=== PATIENT | female | born 1980 | race Caucasian/White ===

== ENCOUNTER 2021-11-24 23:06 | Inpatient (IN) | payer MEDICAID ==
[~2021-11-24] VITALS: Ht 162.6 cm; Wt 52.7 kg
[2021-11-24 23:41] LABS: BASOPHILS # (AUTO) 0.1 X10'3 (0-0.2); BASOPHILS % (AUTO) 1.1 % (0-1); EOSINOPHILS # (AUTO) 0.2 X10'3 (0-0.9); EOSINOPHILS % (AUTO) 2.7 % (0-6); HEMATOCRIT 36.9 % (35.0-45.0); HEMOGLOBIN 12.2 g/dl (12.0-16.0); LYMPHOCYTES # (AUTO) 2.9 X10'3 (1.1-4.8); LYMPHOCYTES % (AUTO) 35.7 % (21-51); MEAN CORPUSCULAR HEMOGLOBIN 27.3 PG (27.0-31.0); MEAN CORPUSCULAR HGB CONC 33.1 g/dL (33.0-36.5); MEAN CORPUSCULAR VOLUME 82.6 FL (78-98); MEAN PLATELET VOLUME 8.5 FL (7.4-10.4); MONOCYTES # (AUTO) 0.5 X10'3 (0-0.9); NEUTROPHILS # (AUTO) 4.5 X10'3 (1.8-7.7); NEUTROPHILS % (AUTO) 54.5 % (42-75); PLATELET COUNT 227 X10'3 (140-440); RED BLOOD COUNT 4.47 X10'6 (4.20-5.60); RED CELL DISTRIBUTION WIDTH 13.9 % (11.5-14.5); WHITE BLOOD COUNT 8.2 X10'3 (4.5-11.0)
--- NOTE | 2021-11-24 23:49 | NUR ---
UPON TRIAGING PT FOUND LEFT SIDED DEFICITS IN STRENGTH AND SENSATION. ADVISED DR MCKENZIE WHO CAME TO TRIAGE TO EVALUATE PT AND STATES HE THINKS SHE MAY HAVE HAD A STROKE ON TUESDAY WHEN SYMPTOMS BEGAN AND IS GOING TO ORDER A HEAD CT
[2021-11-24] MEDS ORDERED: iohexol 350MG/ML 100ml bottle IV ONE (23:52)
[2021-11-24 23:54] LABS: ALANINE AMINOTRANSFERASE 23 U/L (12-78); ALBUMIN 4.1 G/DL (3.4-5.0); ALBUMIN/GLOBULIN RATIO 1.1 (1.1-1.5); ALKALINE PHOSPHATASE 92 IU/L (46-116); ANION GAP 13 (8-16); ASPARTATE AMINO TRANSFERASE 20 U/L (10-37); BILIRUBIN,TOTAL 1.6 MG/DL (0.1-1.0); BLOOD UREA NITROGEN 8 MG/DL (7-18); BUN/CREATININE RATIO 14.3 (6.6-38.0); CHLORIDE 104 MMOL/L (99-107); CREATININE 0.56 MG/DL (0.40-0.90); GLUCOSE 99 MG/DL (70-104); POTASSIUM 3.3 MMOL/L (3.5-5.1); SODIUM 139 MMOL/L (135-145); TOTAL CARBON DIOXIDE 22.2 MMOL/L (24-32); eGFR > 90 ML/MIN
--- NOTE | 2021-11-25 00:03 | NUR ---
PT ROOMED IN BED 15. ASSUMED CARE OF PT. CT ORDERED.
[2021-11-25 00:13] LABS: APTT 30 SECONDS (22-32)
[2021-11-25] MEDS ORDERED: aspirin 325mg tablet PO ONE (01:05)
[2021-11-25] MEDS ORDERED: magnesium hydroxide 30ml (MOM) UD suspension PO PRN (03:15)
[2021-11-25] MEDS ORDERED: ondansetron/PF 4mg/2ml inj IV PRN (03:15)
[2021-11-25] MEDS ORDERED: acetaminophen 325mg tablet PO PRN ×2 (03:15)
[2021-11-25] MEDS ORDERED: HYDROcodone/acetaminophen 5mg/325mg tablet PO PRN (03:15)
[2021-11-25] MEDS ORDERED: morphine 2 MG/ML inj. syringe IV PRN ×2 (03:15)
[2021-11-25] MEDS ORDERED: mag hydrox/Alum hydrox/simeth 30ml oral suspension PO PRN (03:15)
[2021-11-25 03:45] LABS: HEMOGLOBIN A1C 5.5 % (4.5-6.2)
[2021-11-25 03:51] LABS: CHOL/HDL RATIO 2.3 (0.00-4.99); CHOLESTEROL 197 MG/DL (0-200); HDL CHOLESTEROL 85 MG/DL (35-60); LDL CHOLESTEROL 103 MG/DL (50-100); TRIGLYCERIDES 71 MG/DL (20-135)
[2021-11-25] MEDS ORDERED: NO HOME MEDS (04:18)
[2021-11-25] MEDS: dextrose 5%-1/2 normal saline 1,000 ML IV SCH ×3 (05:18→16:08)
[2021-11-25] MEDS: enoxaparin 40mg/0.4ml syringe SUBCUT SCH (07:57)
[2021-11-25] MEDS: docusate sod 100mg capsule PO SCH ×2 (07:57→19:55)
[2021-11-25] MEDS: aspirin 81mg, enteric-coated 1 TAB TABLET.DR PO SCH (07:58)
[2021-11-25] MEDS: atorvastatin 20mg tablet PO SCH (07:58)
[2021-11-25] MEDS ORDERED: potassium CL 10mEq/100ml bag 100 ML IV PRN (08:45)
[2021-11-25] MEDS ORDERED: potassium Cl 20 mEq SR tablet PO PRN (08:45)
[2021-11-25] MEDS ORDERED: magnesium Cl slow-release 64mg tablet PO PRN (08:45)
[2021-11-25] MEDS ORDERED: magnesium 4gm in 100ml NS 100 ML IV PRN (08:45)
[2021-11-25] MEDS: potassium Cl 20 mEq SR tablet PO PRN ×2 (10:52→19:55)
--- NOTE | 2021-11-25 11:38 | NUR ---
significant other at bedside.
--- NOTE | 2021-11-25 15:36 | NUR ---
received report, assumed care. Pt A&O x4, VS stable
[2021-11-25 15:49] VITALS: BP 103/73
--- NOTE | 2021-11-25 16:38 | NUR ---
Message: RE new admit October Emekaliz RM 3100S, asking if you will be around to discuss CT/MRI results Thank you, Phillip ANDERSON
[2021-11-25] MEDS ORDERED: GADOTERATE MEGLUMINE 10 MMOL/20 ML SYRINGE IV ONE (18:13)
--- NOTE | 2021-11-25 18:29 | NUR ---
Problems reprioritized. Patient report given, questions answered & plan of care reviewed with BROOKS ANDERSON.
--- NOTE | 2021-11-25 18:30 | NUR ---
Patient in room ORTHO 4011. I have received report from MONICA Hightower and had the opportunity to ask questions and assume patient care.
[2021-11-25] MEDS: K and/or MAG REPLACEMENT MC SCH (20:00)
[2021-11-25 22:52] VITALS: BP 91/61
[2021-11-26] MEDS: dextrose 5%-1/2 normal saline 1,000 ML IV SCH (04:17)
[2021-11-26 06:00] VITALS: BP 83/48
--- NOTE | 2021-11-26 06:21 | NUR ---
Problems reprioritized. Patient report given, questions answered & plan of care reviewed with MONICA Fisher.
[2021-11-26 06:50] LABS: BASOPHILS # (AUTO) 0.1 X10'3 (0-0.2); BASOPHILS % (AUTO) 0.9 % (0-1); EOSINOPHILS # (AUTO) 0.3 X10'3 (0-0.9); EOSINOPHILS % (AUTO) 5.9 % (0-6); HEMATOCRIT 32.1 % (35.0-45.0); HEMOGLOBIN 10.8 g/dl (12.0-16.0); LYMPHOCYTES # (AUTO) 1.9 X10'3 (1.1-4.8); LYMPHOCYTES % (AUTO) 32.1 % (21-51); MEAN CORPUSCULAR HEMOGLOBIN 27.8 PG (27.0-31.0); MEAN CORPUSCULAR HGB CONC 33.7 g/dL (33.0-36.5); MEAN CORPUSCULAR VOLUME 82.3 FL (78-98); MEAN PLATELET VOLUME 8.6 FL (7.4-10.4); MONOCYTES # (AUTO) 0.4 X10'3 (0-0.9); MONOCYTES % (AUTO) 7.3 % (2-12); NEUTROPHILS # (AUTO) 3.2 X10'3 (1.8-7.7); NEUTROPHILS % (AUTO) 53.8 % (42-75); PLATELET COUNT 182 X10'3 (140-440); RED BLOOD COUNT 3.89 X10'6 (4.20-5.60); RED CELL DISTRIBUTION WIDTH 13.8 % (11.5-14.5)
[2021-11-26 07:00] LABS: ALBUMIN 3.5 G/DL (3.4-5.0); ANION GAP 7 (8-16); BLOOD UREA NITROGEN 6 MG/DL (7-18); BUN/CREATININE RATIO 11.5 (6.6-38.0); CALCIUM 8.1 MG/DL (8.5-10.1); CHLORIDE 110 MMOL/L (99-107); CHOLESTEROL 144 MG/DL (0-200); CREATININE 0.52 MG/DL (0.40-0.90); GLUCOSE 108 MG/DL (70-104); HDL CHOLESTEROL 71 MG/DL (35-60); LDL CHOLESTEROL 66 MG/DL (50-100); POTASSIUM 3.7 MMOL/L (3.5-5.1); SODIUM 140 MMOL/L (135-145); TOTAL CARBON DIOXIDE 23.4 MMOL/L (24-32); TRIGLYCERIDES 36 MG/DL (20-135); eGFR > 90 ML/MIN
--- NOTE | 2021-11-26 07:01 | NUR ---
Patient in room ORTHO 4011. I have received report from BROOKS ANDERSON and had the opportunity to ask questions and assume patient care.
[2021-11-26] MEDS: K and/or MAG REPLACEMENT MC SCH (07:57)
[2021-11-26] MEDS: aspirin 81mg, enteric-coated 1 TAB TABLET.DR PO SCH (08:00)
[2021-11-26] MEDS: atorvastatin 20mg tablet PO SCH (08:00)
[2021-11-26] MEDS: enoxaparin 40mg/0.4ml syringe SUBCUT SCH (08:00)
[2021-11-26] MEDS: docusate sod 100mg capsule PO SCH (08:05)
--- NOTE | 2021-11-26 08:37 | NUR ---
Message: RE NIKOLAI NOGUEIRA RM 6691S. PT WOULD LIKE TO TALK TO YOU BEFORE TAKING AM MEDS. BETHEL ANDERSON
[2021-11-26 10:00] VITALS: BP 97/62
--- NOTE | 2021-11-26 13:13 | NUR ---
PT DISCHARGED, AMBULATED WITH TO LOBBY. PIV REMOVED, DISCHARGE INSTRUCTIONS GIVEN
== END 2021-11-26 13:15 | disposition home or self-care (01) | DRG 54 ==
LOC: ER 23:10 → ED HOLD 11-25 03:19 → ORTHO 4S 11-25 15:30
PROVIDERS: ADMIT Internal Medicine; ATTEND Family Medicine
PROC: B3251ZZ Computerized Tomography (CT Scan) of Bilateral Common Carotid Arteries using Low Osmolar Contrast (ICD-10-PCS; principal; 2021-11-25)
PROC: B32G1ZZ Computerized Tomography (CT Scan) of Bilateral Vertebral Arteries using Low Osmolar Contrast (ICD-10-PCS; 2021-11-25)
PROC: B32R1ZZ Computerized Tomography (CT Scan) of Intracranial Arteries using Low Osmolar Contrast (ICD-10-PCS; 2021-11-25)
PROC: B3281ZZ Computerized Tomography (CT Scan) of Bilateral Internal Carotid Arteries using Low Osmolar Contrast (ICD-10-PCS; 2021-11-25)
DX: G43.909 Migraine, unspecified, not intractable, without status migrainosus (principal); E87.6 Hypokalemia; F41.0 Panic disorder [episodic paroxysmal anxiety]; I10 Essential (primary) hypertension; R53.83 Other fatigue; R00.2 Palpitations; Z88.5 Allergy status to narcotic agent; R29.702 NIHSS score 2; F45.8 Other somatoform disorders
CPT/HCPCS: 36415; 70496; 70498; 70553; 71045; 80048; 80053; 80061; 83036; 83735; 83880; 84100; 84443; 84484; 85025; 85610; 85651; 85730; 93005; 93306; 97116; 97161; 97530; 99285; A9575; G0378; J7042; Q9967